=== PATIENT | male | born 1980 | race American Indian/Alaskan Native ===

== ENCOUNTER 2017-04-16 16:03 | Inpatient (IN) | payer MEDICAID, OTHER ==
[2017-04-16 17:18] LABS: BASO % 0.6 % (0.0-2.0); EOS # 0.1 K/uL (0.0-0.7); EOS % 1.6 % (0.0-4.0); HEMATOCRIT 39.7 % (35.0-51.0); LYMPH # 2.5 K/uL (1.0-4.3); LYMPH % 44.2 % (20.0-40.0); MEAN CELL VOLUME 88.8 fL (80.0-94.0); MEAN CORPUSCULAR HEMOGLOBIN 30.4 pg (27.0-31.0); MEAN CORPUSCULAR HGB CONC 34.3 g/dL (33.0-37.0); MEAN PLATELET VOLUME 9.5 fL (7.2-11.7); MONO # 0.6 K/uL (0.0-0.8); MONO % 9.8 % (0.0-10.0); NRBC % 0.1 % (0.0-2.0); RED CELL DISTRIBUTION WIDTH 13.6 % (11.5-14.5); WHITE BLOOD COUNT 5.8 K/uL (4.8-10.8)
[2017-04-16 17:29] LABS: ALB/GLOB RATIO 1.7 (1.0-2.1); ALCOHOL SERUM 189 mg/dl (0-10); ALKALINE PHOSPHATASE 47 U/L (38-126); ALT/SGPT 56 U/L (21-72); AST/SGOT 39 U/L (17-59); BILIRUBIN,TOTAL 0.5 mg/dL (0.2-1.3); BLOOD UREA NITROGEN 13 mg/dL (9-20); CALCIUM 8.4 mg/dl (8.6-10.4); CARBON DIOXIDE 27 mmol/L (22-30); CHLORIDE 99 mmol/L (98-107); GFR AFRICAN-AMERICAN > 60; GLUCOSE,RANDOM 122 mg/dL (75-110); POTASSIUM 3.9 mmol/L (3.6-5.2); SODIUM 137 mmol/L (132-148); TOTAL PROTEIN 6.9 g/dL (6.3-8.3)
[2017-04-16 17:42] LABS: RBC URINE < 1 /hpf (0-3); URINE BILIRUBIN NEGATIVE (NEGATIVE); URINE BLOOD NEGATIVE (NEGATIVE); URINE COLOR Yellow (YELLOW); URINE GLUCOSE (UA) NORMAL (Normal); URINE KETONE NEGATIVE (NEGATIVE); URINE LEUKOCYTE ESTERASE NEG Leu/uL (Negative); URINE PROTEIN NEGATIVE (NEGATIVE); URINE UROBILINOGEN NORMAL mg/dL (0.2-1.0); WBC URINE 3 /hpf (0-5)
--- NOTE | 2017-04-16 19:30 | C.PDOC ---
History Of Present Illness Pt is here requesting detox from alcohol. Time Seen by Provider: 04/16/17 16:47 Chief Complaint (Nursing): Substance Abuse History Per: Patient Onset/Duration Of Symptoms: Days Current Symptoms Are (Timing): Still Present Suicide/Self Injury Attempted (Context): None Modifying Factor(s): Alcohol Severity: Moderate Associated Symptoms: denies: Suicidal Thoughts, Suicidal Plan Additional History Per: Prior Records Past Medical History Reviewed: Historical Data, Nursing Documentation, Vital Signs Vital Signs: Last Vital Signs Temp 98.3 F 04/16/17 19:30 Pulse 95 H 04/16/17 19:30 Resp 18 04/16/17 19:30 BP 137/88 04/16/17 19:30 Pulse Ox 93 L 04/16/17 19:31 - Medical History PMH: HTN Other PMH: Alcohol abuse Family History: States: Unknown Family Hx - Social History Hx Alcohol Use: Yes Hx Substance Use: No - Immunization History Hx Tetanus Toxoid Vaccination: No Hx Influenza Vaccination: Yes Hx Pneumococcal Vaccination: No Review Of Systems Except As Marked, All Systems Reviewed And Found Negative. Constitutional: Negative for: Fever Cardiovascular: Negative for: Chest Pain Respiratory: Negative for: Shortness of Breath Gastrointestinal: Negative for: Vomiting, Abdominal Pain Musculoskeletal: Negative for: Neck Pain Skin: Negative for: Rash Neurological: Negative for: Weakness, Numbness, Seizures Physical Exam - Physical Exam Appears: Non-toxic, No Acute Distress Skin: Normal Color, Warm, Dry, No Rash Head: Atraumatic, Normacephalic Eye(s): bilateral: Normal Inspection, PERRL, EOMI Neck: Normal ROM, Supple Cardiovascular: Rhythm Regular Respiratory: Normal Breath Sounds, No Accessory Muscle Use Gastrointestinal/Abdominal: Soft, No Tenderness Back: No CVA Tenderness Extremity: Normal ROM Neurological/Psych: Oriented x3, Normal Motor, Normal Sensation ED Course And Treatment - Laboratory Results Result Diagrams: 04/16/17 17:13 04/16/17 17:13 Lab Interpretation: No Acute Changes O2 Sat by Pulse Oximetry: 95 Pulse Ox Interpretation: Normal Progress Note: Pt is medically stable for detox admission. Disposition Counseled Patient/Family Regarding: Studies Performed, Diagnosis - Disposition Disposition: HOSPITALIZED Disposition Time: 19:46 Condition: STABLE Forms: [facility] (Maltese) - Clinical Impression Clinical Impression: Alcohol dependence Decision To Admit - Pt Status Changed To: Hospital Disposition Of: Inpatient - Admit Certification Admit to Inpatient:: After my assessment, the patient will require hospitalization for at least two midnights. This is because of the severity of symptoms shown, intensity of services needed, and/or the medical risk in this patient being treated as an outpatient. - InPatient: Physician Admission Certification: I certify that this patient requires 2 or more midnights of care for the following reason:: Detox. - . Bed Request Type: Detox Admitting Physician: Kellen Bernardo Patient Diagnosis: Alcohol dependence
--- NOTE | 2017-04-16 19:57 | PCM.BM ---
<Alice Velasco - Last Filed: 04/16/17 19:56> Treatment Plan Problems - Problems identified on initial assessmt potiential for autonomic instability related to alcohol withdrawal Date Initiated: 04/16/17 Time Initiated: 19:56 Assessment reference: NA Status: Active Treatment assets and liabiliti Patient Assests: ADL independent, physically healthy Patient Liabilities: substance abuse, medical problems - Milieu Protocol Maintain good personal hygiene: daily Encourage regular showers, daily Remind patient to perform daily oral care, daily Assist patient to perform ADL's Maintain personal safety: every shift Educate patient to report safety concerns to staff, every shift Monitor environment for contraband/sharps Medication safety: Monitor for expected outcome, potential side effects: every shift, Assess barriers to learning: every shift, Assess readiness for medication education: every shift <Kellen Bernardo - Last Filed: 04/17/17 14:36> - Diagnosis (1) Alcohol dependence Status: Acute Interventions: 04/17/17 14:36 * Assess 7x/week regarding severity of withdrawal * Educate regarding risks, benefits, side effects and alternatives of medications * Use Motivational Interviewing for abstinence * Use CBT for relapse prevention * Medication management for withdrawal symptoms * Encourage medication assisted treatment *
[2017-04-17] MEDS: Multiple Vitamins Tab PO SCH (09:43)
[2017-04-17] MEDS: Pantoprazole 40 mg EC Tab PO SCH (09:44)
--- NOTE | 2017-04-17 14:22 | PCM.PSYCH ---
Initial Psychiatric Evaluation - Initial Psychiatric Evaluation Type of Admission: Voluntary Legal Status: Capacity Chief Complaint (in patient's own words): "Alcohol" History of Present Illness and Precipitating Events: The patient is seen, chart reviewed and case discussed. 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 He is here for alcohol detox; admits to drinking about 2 L of wine/liquor and some beer. He has been drinking for 20 years and already has withdrawal symptoms. He had detox 1 time only but never been to any rehabilitation. He doesn't go to anymore and he has not used any anti-craving medications. He used marijuana in his 20s but denies all other drugs. Denies psychiatric problems as well. 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 Currently his liver and pancreas are stable. Current Medications: Active Medications Generic Name Dose Route Start Last Admin Trade Name Chiragq PRN Reason Stop Dose Admin Amlodipine Besylate 5 mg 04/17/17 10:00 04/17/17 09:45 Norvasc PO 5 mg DAILY VEENA Administration Chlordiazepoxide 25 mg 04/17/17 00:00 04/17/17 12:10 Librium PO 04/20/17 23:59 25 mg Q6 VEENA Administration Taper Chlordiazepoxide 25 mg 04/16/17 21:31 Librium PO Q4H PRN Alcohol Withdrawal Clonidine HCl 0.1 mg 04/16/17 21:31 04/17/17 08:38 Catapres PO 0.1 mg Q4H PRN Administration Symptoms of alcohol withdrawl Folic Acid 1 mg 04/17/17 10:00 04/17/17 09:43 Folic Acid PO 1 mg DAILY VEENA Administration Gabapentin 300 mg 04/17/17 10:00 04/17/17 09:44 Neurontin PO 300 mg BID VEENA Administration Hydroxyzine HCl 50 mg 04/16/17 21:32 Atarax PO Q6H PRN Anxiety Ibuprofen 600 mg 04/16/17 21:32 Motrin Tab PO Q6H PRN Pain, moderate (4-7) Losartan Potassium 100 mg 04/17/17 10:00 04/17/17 09:44 Cozaar PO 100 mg DAILY VEENA Administration Metoprolol Tartrate 25 mg 04/17/17 10:00 04/17/17 09:44 Lopressor PO 25 mg BID VEENA Administration Multivitamins 1 tab 04/17/17 10:00 04/17/17 09:43 Hexavitamin PO 1 tab DAILY VEENA Administration Ondansetron HCl 4 mg 04/16/17 20:34 04/17/17 06:45 Zofran Tab PO 4 mg Q6 PRN Administration Nausea/Vomiting Pantoprazole Sodium 40 mg 04/17/17 10:00 04/17/17 09:44 Protonix Ec Tab PO 40 mg DAILY VEENA Administration Thiamine HCl 100 mg 04/17/17 10:00 04/17/17 09:43 Vitamin B1 Tab PO 100 mg DAILY VEENA Administration Trazodone HCl 100 mg 04/16/17 21:34 Desyrel PO HS PRN Insomnia Past Psychiatric History - Past Psychiatric History Previous Treatment History: None Pertinent Medical Hx (Current Medical&Sleep Prob, Allergies): Allergies Allergy/AdvReac Type Severity Reaction Status Date / Time No Known Allergies Allergy Verified 04/16/17 16:17 Losartan [Cozaar] 100 mg PO DAILY 04/16/17 Metoprolol Tartrate [Lopressor] 1 tab PO BID 04/16/17 Pantoprazole Sodium [Protonix] 20 mg PO DAILY 04/16/17 amLODIPine [Norvasc] 10 mg PO DAILY 04/16/17 Review of Systems - Neurological Neurological: UNREMARKABLE - Psychiatric Psychiatric: Abnormal Sleep Pattern, Anxiety. absent: Depression, Hallucinations, Homicidal Ideation, Paranoia, Suicidal Ideation Mental Status Examination - Personal Presentation Personal Presentation: Looks older than stated age - Affect Affect: Constricted - Motor Activity Motor Activity: Calm - Reliability in Providing Information Reliability in Providing Information: Good - Speech Speech: Organized - Mood Mood: Anxious - Formal Thought Process Formal Thought Process: No Impairment - Cognitive Functions Orientation: Person, Place, Situation, Time Sensorium: Alert Attention/Concentration: Attentive Estimate of Intelligence: Average Judgement: Intact, as evidence by: Insight regarding need for hospitalization Memory: Recent intact, as evidence by: Ability to recall events of the day, Remote intact, as evidenced by: Abilit to recall sig. life events - Risk Risk: Diminished functioning - Strength & Assets Inventory Strength & Assets Inventory: Cooperative DSM 5 DX - DSM 5 DSM 5 Diagnosis: Alcohol withdrawal Alcohol use d/o - severe HTN - Recommended/Plan of Treatment Treatment Recommendations and Plan of Treatment: Librium detox Gabapentin for augmentation As needed medications Attend groups and activities Supportive therapy and psychoeducation [place] for abstinence CBT for relapse prevention Encourage MAT Refer to rehab or IOP, and self-help groups Smoking cessation with [place] Nicotine patch 34 min Projected ELOS: 5-6 days Prognosis: Good w treatment - Smoking Cessation Smoking Cessation Initiated: Yes
[2017-04-18] MEDS: Multiple Vitamins Tab PO SCH (10:37)
[2017-04-18] MEDS: Pantoprazole 40 mg EC Tab PO SCH (10:37)
--- NOTE | 2017-04-18 14:16 | PCM.PYCHPN ---
Psychiatric Progress Note - Psychiatric Progress Note Patient seen today, length of contact: 16 min Patient Chief Complaint: "OK" Problems Identified/Issues Discussed: The pt is seen, chart reviewed, case discussed with staff. The pt is compliant with medications and reports no side-effects. Symptoms are improving but needs more time to stabilize. After care discussed, support and psychoeducation given. Medication Change: Yes (detox changes daily) Medical Record Reviewed: Yes Mental Status Examination - Cognitive Function Orientation: Person, Place, Situation, Time Memory: Intact Attention: WNL Concentration: WNL Association: WNL Fund of Knowledge: WNL - Mood Mood: Anxious - Affect Affect: Constricted - Speech Speech: Appropriate - Formal Thought Process Formal Thought Process: No Impairment - Suicidal Ideation Suicidal Ideation: No - Homicidal Ideation Homicidal Ideation: No Goal/Treatment Plan - Goal/Treatment Plan Need for Continued Stay: Discharge may exacerbated symptoms, Severe functional impairment Progress Toward Problem(s) and Goals/Treatment Plan: Librium detox Gabapentin for augmentation As needed medications Attend groups and activities Supportive therapy and psychoeducation [place] for abstinence CBT for relapse prevention Encourage MAT Refer to rehab or IOP, and self-help groups Smoking cessation with [place] Nicotine patch
[2017-04-18 15:46] VITALS: RESP 18
[2017-04-19] MEDS: Multiple Vitamins Tab PO SCH (10:15)
[2017-04-19] MEDS: Pantoprazole 40 mg EC Tab PO SCH (10:15)
--- NOTE | 2017-04-19 13:23 | PCM.PYCHPN ---
Psychiatric Progress Note - Psychiatric Progress Note Patient seen today, length of contact: 16 min Patient Chief Complaint: "Better" Problems Identified/Issues Discussed: The pt is seen, chart reviewed, case discussed with staff. Support given, CBT and SD used briefly No new symptoms reported, improving slowly and needs more time No SEs from medications, risks discussed. After care discussed Medication Change: Yes (detox changes daily) Medical Record Reviewed: Yes Mental Status Examination - Cognitive Function Orientation: Person, Place, Situation, Time Memory: Intact Attention: WNL Concentration: WNL Association: WNL Fund of Knowledge: WNL - Mood Mood: Anxious - Affect Affect: Constricted - Speech Speech: Appropriate - Formal Thought Process Formal Thought Process: No Impairment - Suicidal Ideation Suicidal Ideation: No - Homicidal Ideation Homicidal Ideation: No Goal/Treatment Plan - Goal/Treatment Plan Need for Continued Stay: Discharge may exacerbated symptoms, Severe functional impairment Progress Toward Problem(s) and Goals/Treatment Plan: Librium detox Gabapentin for augmentation As needed medications Attend groups and activities Supportive therapy and psychoeducation [place] for abstinence CBT for relapse prevention Encourage MAT Refer to rehab or IOP, and self-help groups Smoking cessation with [place] Nicotine patch Estimated Date of D/C: 04/20/17
[2017-04-19] MEDS ORDERED: Benzocaine 7.5% 9.4 G TUBE MM PRN (20:21)
[2017-04-20] MEDS: Multiple Vitamins Tab PO SCH (09:17)
[2017-04-20] MEDS: Pantoprazole 40 mg EC Tab PO SCH (09:18)
--- NOTE | 2017-04-20 09:31 | PCM.PYCHDC ---
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 He is here for alcohol detox; admits to drinking about 2 L of wine/liquor and some beer. He has been drinking for 20 years and already has withdrawal symptoms. He had detox 1 time only but never been to any rehabilitation. He doesn't go to anymore and he has not used any anti-craving medications. He used marijuana in his 20s but denies all other drugs. Denies psychiatric problems as well. 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 Currently his liver and pancreas are stable. Consultations:: List each consultation separately and include: 1. Reason for request. 2. Findings. 3. Follow-up Consultations: NONE Summary of Hospital Course include:: 1. Description of specific treatment plan utilized for patients during their course of treatmen. 2. Summarize the time- course for resolution of acute symptoms and/or regressed behaviors. 3. Describe issues identified and worked on during hospitalization. 4. Describe medication utilized. 5. Describe medical problems identified and treated. 6. Reassessment of suicide risk Summary of Hospital Course: The pt was admitted and started on treatment with psychotherapy, support, psychoeducation and medications. Pt was compliant with meds and denied side effects. He reported improvement in his alcohol withdrawal symptoms. At the time of discharge he was not suicidal or homicidal ideation, intent or plan. IN and CBT used. The pt attended groups and activities, as well as milieu therapy. All the risks and benefits of medications are discussed and the patient understood and agreed. The pt improved with the treatments provided. After care discussed with the patient. Recommend to be compliant with the treatment plan. Time spend 18 minutes - Diagnosis (1) Withdrawal symptoms, alcohol Status: Resolved (2) Alcohol dependence Status: Resolved - Final Diagnosis (DSM 5) Condition upon Discharge: STABLE DSM 5: Alcohol use disorder. severe, dependence, withdrawal symptoms. Disposition: HOME/ ROUTINE Follow-up Treatment Plan: PLEASE SEE AFTER CARE PLAN Prescriptions/Medication Reconciliation: Gabapentin [Neurontin] 300 mg PO BID #60 cap hydrOXYzine HCl [Atarax] 50 mg PO BID PRN #60 tab PRN Reason: Anxiety traZODone [Desyrel] 100 mg PO HS PRN #30 tab PRN Reason: Insomnia - Smoking Cessation Smoking Cessation Medication prescribed: Yes - Antipsychotic Medications Pt discharged on 2 or more routine antipsychotic medications: No
[2017-04-20 10:04] VITALS: BP 128/86; PULSE 90; TEMP 98.4; O2SAT 96
== END 2017-04-20 09:30 | disposition home or self-care (01) | DRG 751 ==
LOC: C.ER 16:03 → C.7D 19:46
PROVIDERS: ADMIT Psychiatry & Neurology Psychiatry; ATTEND Psychiatry & Neurology Psychiatry
DX: F10.239 Alcohol dependence with withdrawal, unspecified (principal); E66.9 Obesity, unspecified; I10 Essential (primary) hypertension; Z79.899 Other long term (current) drug therapy; G47.00 Insomnia, unspecified; Z68.39 Body mass index [BMI] 39.0-39.9, adult; Y90.6 Blood alcohol level of 120-199 mg/100 ml

== ENCOUNTER 2017-09-27 13:27 | Inpatient (IN) | payer MEDICAID, OTHER ==
--- NOTE | 2017-09-27 14:23 | C.PDOC ---
History Of Present Illness 37-year-old male, presents to the emergency department for detox from alcohol. Patients last drink was at 10:00 this morning. Denies any nausea/vomiting, SI/ HI. Time Seen by Provider: 09/27/17 13:38 Chief Complaint (Nursing): Medical Clearance History Per: Patient History/Exam Limitations: no limitations Current Symptoms Are (Timing): Still Present Past Medical History Reviewed: Historical Data, Nursing Documentation, Vital Signs Vital Signs: Last Vital Signs Temp 98.7 F 09/27/17 17:50 Pulse 88 09/27/17 17:50 Resp 18 09/27/17 17:50 BP 131/84 09/27/17 17:50 Pulse Ox 96 09/27/17 17:50 - Medical History PMH: HTN, Pancreatitis (2 months ago) Family History: States: No Known Family Hx - Social History Hx Alcohol Use: Yes Hx Substance Use: No - Immunization History Hx Tetanus Toxoid Vaccination: No Hx Influenza Vaccination: Yes Hx Pneumococcal Vaccination: No Review Of Systems Constitutional: Negative for: Fever, Chills Cardiovascular: Negative for: Chest Pain Respiratory: Negative for: Shortness of Breath Gastrointestinal: Negative for: Nausea, Vomiting Neurological: Negative for: Weakness, Numbness Physical Exam - Physical Exam Appears: Non-toxic, No Acute Distress Skin: Normal Color, Warm, Dry, No Rash Head: Atraumatic, Normacephalic Eye(s): bilateral: Normal Inspection Nose: Normal Oral Mucosa: Moist Lips: Normal Appearing Neck: Normal ROM Chest: Symmetrical Cardiovascular: Rhythm Regular, No Murmur Respiratory: Normal Breath Sounds, No Accessory Muscle Use Gastrointestinal/Abdominal: Soft, No Tenderness Extremity: Normal ROM, No Deformity, No Swelling Neurological/Psych: Oriented x3, Normal Speech ED Course And Treatment - Laboratory Results Result Diagrams: 09/27/17 15:21 09/27/17 15:21 O2 Sat by Pulse Oximetry: 100 (RA) Pulse Ox Interpretation: Normal Progress Note: Patient is medically cleared and ready to be admitted to detox. Disposition - Disposition Disposition: HOSPITALIZED Disposition Time: 16:14 Condition: STABLE - Clinical Impression Clinical Impression: Alcohol dependence - Scribe Statement The provider has reviewed the documentation as recorded by the Scribe (Maegan Arredondo) All medical record entries made by the Scribe were at my direction and personally dictated by me. I have reviewed the chart and agree that the record accurately reflects my personal performance of the history, physical exam, medical decision making, and the department course for this patient. I have also personally directed, reviewed, and agree with the discharge instructions and disposition. Decision To Admit - Pt Status Changed To: Hospital Disposition Of: Inpatient - Admit Certification Admit to Inpatient:: After my assessment, the patient will require hospitalization for at least two midnights. This is because of the severity of symptoms shown, intensity of services needed, and/or the medical risk in this patient being treated as an outpatient. - InPatient: Physician Admission Certification: I certify that this patient requires 2 or more midnights of care for the following reason:: Needs more than days for detox - . Bed Request Type: Detox Patient Diagnosis: Alcohol dependence
[2017-09-27 15:32] LABS: BASO % 0.5 % (0.0-2.0); EOS # 0.1 K/uL (0.0-0.7); EOS % 1.2 % (0.0-4.0); HEMOGLOBIN 14.6 g/dL (12.0-18.0); LYMPH % 28.6 % (20.0-40.0); MEAN CELL VOLUME 87.2 fL (80.0-94.0); MEAN CORPUSCULAR HEMOGLOBIN 31.3 pg (27.0-31.0); MEAN CORPUSCULAR HGB CONC 35.9 g/dL (33.0-37.0); MEAN PLATELET VOLUME 9.5 fL (7.2-11.7); MONO # 0.6 K/uL (0.0-0.8); MONO % 7.9 % (0.0-10.0); NEUT # 4.4 K/uL (1.8-7.0); NEUT % 61.8 % (50.0-75.0); NRBC % 0.2 % (0.0-2.0); RBC 4.67 Mil/uL (4.40-5.90); RED CELL DISTRIBUTION WIDTH 12.9 % (11.5-14.5); WHITE BLOOD COUNT 7.1 K/uL (4.8-10.8)
[2017-09-27 15:39] LABS: SQUAMOUS EPITHIAL < 1 /hpf (0-5); URINE BILIRUBIN NEGATIVE (NEGATIVE); URINE BLOOD NEGATIVE (NEGATIVE); URINE CLARITY Clear (Clear); URINE COLOR Straw (YELLOW); URINE GLUCOSE (UA) NORMAL (Normal); URINE LEUKOCYTE ESTERASE NEG Leu/uL (Negative); URINE PROTEIN NEGATIVE (NEGATIVE); URINE UROBILINOGEN NORMAL mg/dL (0.2-1.0)
[2017-09-27 15:40] LABS: ALB/GLOB RATIO 1.3 (1.0-2.1); ALT/SGPT 124 U/L (21-72); AST/SGOT 111 U/L (17-59); BLOOD UREA NITROGEN 13 mg/dL (9-20); CALCIUM 8.7 mg/dl (8.6-10.4); GFR AFRICAN-AMERICAN > 60; GFR NON-AFRICAN AMERICAN > 60
[2017-09-27 15:51] LABS: BARBITURATES, UR NEGATIVE (NEGATIVE); BENZODIAZEPINES, UR NEGATIVE (NEGATIVE); OPIATES, UR NEGATIVE (NEGATIVE); PHENCYCLIDINE, UR NEGATIVE (NEGATIVE)
--- NOTE | 2017-09-27 18:05 | PCM.BM ---
<Chris Velez - Last Filed: 09/27/17 18:03> Treatment Plan Problems - Problems identified on initial assessmt Alcohol Detox Date Initiated: 09/27/17 Time Initiated: 17:45 Assessment reference: NA Status: Active Treatment assets and liabiliti Patient Assests: ADL independent, physically healthy Patient Liabilities: substance abuse (ETOH), medical problems (HTN, ) - Milieu Protocol Maintain good personal hygiene: daily Encourage regular showers, daily Remind patient to perform daily oral care, every shift Assist patient to perform ADL's Conduct patient checks and document Observation sheet: Q15 minutes Maintain personal safety: every shift Educate patient to report safety concerns to staff, every shift Monitor environment for contraband/sharps Medication safety: Monitor for expected outcome, potential side effects: every shift, Assess barriers to learning: every shift, Assess readiness for medication education: every shift <Fauzia Centeno - Last Filed: 09/30/17 11:24> Family Contact Family involvement: Famliy/SO not involved - Goals for Treatment Patient goals for treatment: Complete detox and transition to [facility] in [place]. Discharge/Continuing Care - Education Needs Education Needs: Patient Medication, Patient Diagnosis/Disease Process, Patient Coping Skills, Patient Anger Management skills, Patient Placement options, Patient Community resources - Discharge Discharge Criteria: No longer exhibiting s/s of withdrawal, Reduction of target symptoms Discharge to:: Home, With Family - Treatment Team Participation Patient/Family/SO Statement: 09/30/17 11:25 "I wanna go to [facility] in [place]. I'm not interested in rehab right now." Discussed with Family/SO: No Was Patient/Family/SO present at Treatment Team Meeting: Yes <Kellen Bernardo - Last Filed: 09/30/17 12:47> - Diagnosis (1) Alcohol dependence Status: Acute Interventions: 09/30/17 12:47 * Assess 7x/week regarding severity of withdrawal * Educate regarding risks, benefits, side effects and alternatives of medications * Use Motivational Interviewing for abstinence * Use CBT for relapse prevention * Medication management for withdrawal symptoms * Encourage medication assisted treatment *
[2017-09-27] MEDS ORDERED: Aluminum Hydroxide/Magnesium Hydroxide Susp (30 mL) PO PRN (22:31)
[2017-09-28] MEDS: Multiple Vitamins Tab PO SCH (09:55)
--- NOTE | 2017-09-28 10:10 | PCM.PSYCH ---
Initial Psychiatric Evaluation - Initial Psychiatric Evaluation Type of Admission: Voluntary Legal Status: Capacity Chief Complaint (in patient's own words): I came to get help for detox History of Present Illness and Precipitating Events: Patient is a 50 y/o male, came to the ED to get help in alcohol detox. Pt stated his substance abuse began at the age of 26 and he cannot identify any triggers. Pt reports he has been to detox at [facility] last year and [facility] 5 years ago and no aftercare due to IOP being, busy as pt reports. Pt stated his PCP dx him with anxiety a year ago and barely takes Xanax for his anxiety because he drinks. Pt stated he has been sober for two years within a 9 year duration. Pt states, I drink about 240z of beer and wine and about 6-8 shots on a daily basis. Pt denies any other substances. Pt was arrested at the age of 19 for stolen property and denies incarceration. Pt is unemployed; he used to work at [employer] last year but reported they let him go after he came back from detox. Pt reports high blood pressure and pre-diabetes, he takes 100mg of Metoprolol, 100mg of Losartan, 10mg of Norvasc daily and 1mg of Xanax as needed. Pt reported his sister is a great support system. Pt denies any trauma and hx of violence. Pt reports cold flashes and the shakes when he is withdrawing and his father OD on heroin and his mother was an addict. Pts mood was calm, behavior was attentive and speech was normal. Pt denies S/I, H/I and A/V/T hallucinations. PMH: HTN Current Medications: Active Medications Generic Name Dose Route Start Last Admin Trade Name Freq PRN Reason Stop Dose Admin Al Hydrox/Mg Hydrox/Simethicone 30 ml 09/27/17 22:31 Maalox 30 Ml PO TID PRN Indigestion / Heartburn Clonidine HCl 0.1 mg 09/27/17 22:31 Catapres PO Q8 PRN COWS Score More or Equal to 5 Folic Acid 1 mg 09/28/17 10:00 09/28/17 09:56 Folic Acid PO 1 mg DAILY VEENA Administration Lorazepam 2 mg 09/27/17 22:45 09/28/17 09:55 Ativan PO 10/02/17 22:44 2 mg Q4H VEENA Administration Taper Lorazepam 1 mg 09/27/17 22:32 Ativan PO Q4H PRN Symptoms of alcohol withdrawl Multivitamins 1 tab 09/28/17 10:00 09/28/17 09:55 Hexavitamin PO 1 tab DAILY VEENA Administration Ondansetron HCl 4 mg 09/27/17 17:39 09/27/17 18:42 Zofran Tab PO 4 mg Q6H PRN Administration Nausea/Vomiting Pseudoephedrine HCl 60 mg 09/27/17 22:31 Sudafed Tab PO QID PRN Nasal/Sinus Congestion Thiamine HCl 100 mg 09/28/17 10:00 09/28/17 09:56 Vitamin B1 Tab PO 100 mg DAILY VEENA Administration Trazodone HCl 50 mg 09/27/17 22:32 09/27/17 23:23 Desyrel PO 50 mg HS PRN Administration Insomnia Past Psychiatric History - Past Psychiatric History Previous Treatment History: None Pertinent Medical Hx (Current Medical&Sleep Prob, Allergies): Allergies Allergy/AdvReac Type Severity Reaction Status Date / Time No Known Allergies Allergy Verified 09/27/17 13:35 Metoprolol Tartrate [Lopressor] 1 tab PO BID 04/16/17 amLODIPine [Norvasc] 10 mg PO DAILY 04/16/17 Losartan [Cozaar] 100 mg PO DAILY tab 04/20/17 Metoprolol Tartrate [Lopressor] 25 mg PO BID tab 04/20/17 amLODIPine [Norvasc] 5 mg PO DAILY tab 04/20/17 Review of Systems - Review of Systems All systems: reviewed and no additional remarkable complaints except - Psychiatric Psychiatric: Anxiety, Irritability. absent: Suicidal Ideation Mental Status Examination - Personal Presentation Personal Presentation: Looks stated age - Affect Affect: Constricted - Motor Activity Motor Activity: Calm - Reliability in Providing Information Reliability in Providing Information: Fair - Speech Speech: Organized - Mood Mood: Anxious - Formal Thought Process Formal Thought Process: No Impairment - Obsessions/Compulsions Obsessions: No Compulsions: No - Cognitive Functions Orientation: Person, Place, Situation, Time Sensorium: Alert Attention/Concentration: Attentive Abstract Thinking: [place] Estimate of Intelligence: Below average Judgement: Imparied, as evidence by: Poor judgement, Intact, as evidence by: Insight regarding need for hospitalization - Risk Risk: Withdrawal, Diminished functioning - Strength & Assets Inventory Strength & Assets Inventory: Family support DSM 5 DX - DSM 5 DSM 5 Diagnosis: Alcohol use disorder severe Alcohol withdrawal uncomplicated Depressive disorder NOS - Recommended/Plan of Treatment Treatment Recommendations and Plan of Treatment: Alcohol use disorder severe CBT Psychoeducation Supportive therapy, individual therapy Use [place] for abstinence Alcohol withdrawal uncomplicated CBT Psychoeducation Supportive therapy, individual therapy Ativan when necessary Start Ativan taper Start folic acid/thiamine/multivitamin Depressive disorder NOS CBT Psychoeducation Supportive therapy, individual therapy Trazodone 50 mg by mouth daily at bedtime HTN Continue prescribed medications
[2017-09-28] MEDS: Pantoprazole 40 mg EC Tab PO SCH (14:23)
[2017-09-29] MEDS: Pantoprazole 40 mg EC Tab PO SCH ×2 (05:57→10:11)
[2017-09-29] MEDS: Multiple Vitamins Tab PO SCH (10:04)
--- NOTE | 2017-09-29 12:26 | PCM.PYCHPN ---
Psychiatric Progress Note - Psychiatric Progress Note Patient seen today, length of contact: 15 min Patient Chief Complaint: I came to get help for detox Problems Identified/Issues Discussed: Patient seen and evaluated, chart reviewed and discussed with the nurse. Patient still reports withdrawal symptoms nausea, headaches, shakes and abdominal cramps. He reports some improvement in his mood and denies any feelings of hopelessness and helplessness. Patient denies any auditory or visual hallucinations, or any psychotic symptoms. He reports improvement in his sleep and appetite. He is tolerating the withdrawal medications and denies any side effects. Supportive therapy and psychoeducation were given. Medication Change: Yes Medical Record Reviewed: Yes Mental Status Examination - Cognitive Function Orientation: Person, Place, Situation, Time Memory: Intact Attention: WNL Concentration: Poor Association: WNL Fund of Knowledge: Poor - Mood Mood: Anxious - Affect Affect: Constricted - Speech Speech: Soft - Formal Thought Process Formal Thought Process: No Impairment - Suicidal Ideation Suicidal Ideation: No - Homicidal Ideation Homicidal Ideation: No Goal/Treatment Plan - Goal/Treatment Plan Need for Continued Stay: Severe depression anxiety, Severe functional impairment Progress Toward Problem(s) and Goals/Treatment Plan: Alcohol use disorder severe CBT Psychoeducation Supportive therapy, individual therapy Use [place] for abstinence Alcohol withdrawal uncomplicated CBT Psychoeducation Supportive therapy, individual therapy Ativan when necessary Start Ativan taper Start folic acid/thiamine/multivitamin Depressive disorder NOS CBT Psychoeducation Supportive therapy, individual therapy Trazodone 50 mg by mouth daily at bedtime HTN Continue prescribed medications
[2017-09-30] MEDS: Multiple Vitamins Tab PO SCH (09:48)
[2017-09-30] MEDS: Pantoprazole 40 mg EC Tab PO SCH (09:51)
--- NOTE | 2017-09-30 12:51 | PCM.PYCHPN ---
Psychiatric Progress Note - Psychiatric Progress Note Patient seen today, length of contact: 15 min Patient Chief Complaint: "So so" Problems Identified/Issues Discussed: The pt is seen, chart reviewed, case discussed with staff. Support and psychoeducation given, CBT and MT used briefly No new symptoms reported, improving slowly and needs more time No SEs from medications, risks discussed. After care discussed Medication Change: Yes (detox changes daily) Medical Record Reviewed: Yes Mental Status Examination - Cognitive Function Orientation: Person, Place, Situation, Time Memory: Intact Attention: WNL Concentration: Poor Association: WNL Fund of Knowledge: Poor - Mood Mood: Anxious - Affect Affect: Constricted - Speech Speech: Soft - Formal Thought Process Formal Thought Process: No Impairment - Suicidal Ideation Suicidal Ideation: No - Homicidal Ideation Homicidal Ideation: No Goal/Treatment Plan - Goal/Treatment Plan Need for Continued Stay: Discharge may exacerbated symptoms, Severe functional impairment Progress Toward Problem(s) and Goals/Treatment Plan: Taper with ativan Add topamax for cravings Gabapentin for augmentation if needed As needed medications All risks, benefits and alternatives of the meds discussed, and the pt agreed and understood. Attend groups and activities Supportive therapy and psychoeducation MT for abstinence CBT for relapse prevention Encourage MAT Refer to rehab or IOP, and self-help groups Smoking cessation with MT Nicotine patch if needed 34 min - Smoking Cessation Smoking Cessation Initiated: Yes
[2017-10-01] MEDS: Pantoprazole 40 mg EC Tab PO SCH (09:34)
[2017-10-01] MEDS: Multiple Vitamins Tab PO SCH (09:34)
--- NOTE | 2017-10-01 14:21 | PCM.PYCHPN ---
Psychiatric Progress Note - Psychiatric Progress Note Patient seen today, length of contact: 16 min Patient Chief Complaint: "Better" Problems Identified/Issues Discussed: The pt is seen, chart reviewed, case discussed with staff. The pt is compliant with medications and reports no side-effects. Symptoms are improving but needs more time to stabilize. After care discussed, support and psychoeducation given. Topamax started today - risks discussed, he understood Medication Change: Yes (detox changes daily) Medical Record Reviewed: Yes Mental Status Examination - Cognitive Function Orientation: Person, Place, Situation, Time Memory: Intact Attention: WNL Concentration: Poor Association: WNL Fund of Knowledge: Poor - Mood Mood: Anxious - Affect Affect: Constricted - Speech Speech: Soft - Formal Thought Process Formal Thought Process: No Impairment - Suicidal Ideation Suicidal Ideation: No - Homicidal Ideation Homicidal Ideation: No Goal/Treatment Plan - Goal/Treatment Plan Need for Continued Stay: Discharge may exacerbated symptoms, Severe functional impairment Progress Toward Problem(s) and Goals/Treatment Plan: Taper with ativan Add topamax for cravings Gabapentin for augmentation if needed As needed medications All risks, benefits and alternatives of the meds discussed, and the pt agreed and understood. Attend groups and activities Supportive therapy and psychoeducation [place] for abstinence CBT for relapse prevention Encourage MAT Refer to rehab or IOP, and self-help groups Smoking cessation with NE Nicotine patch if needed
--- NOTE | 2017-10-02 08:27 | PCM.PYCHDC ---
Mental Status Examination - Mental Status Examination Orientation: Person, Place, Situation, Time Memory: Intact Mood: Anxious Affect: Constricted Speech: Appropriate Attention: WNL Concentration: WNL Association: WNL Fund of Knowledge: WNL Formal Thought Process: No Impairment Suicidal Ideation: No Current Homicidal Ideation?: No Discharge Summary - Discharge Note Reason for Hospitalization: Alcohol detox Consultations:: List each consultation separately and include: 1. Reason for request. 2. Findings. 3. Follow-up Summary of Hospital Course include:: 1. Description of specific treatment plan utilized for patients during their course of treatmen. 2. Summarize the time- course for resolution of acute symptoms and/or regressed behaviors. 3. Describe issues identified and worked on during hospitalization. 4. Describe medication utilized. 5. Describe medical problems identified and treated. 6. Reassessment of suicide risk Summary of Hospital Course: Hospital course: The pt was admitted and started on treatment with psychotherapy, support, psychoeducation and medications. OR and CBT used. The pt attended groups and activities, as well as milieu therapy. All the risks and benefits of medications are discussed and the patient understood and agreed. The pt improved with the treatments provided. After care discussed with the patient. He will go to [facility] in [place]. - Final Diagnosis (DSM 5) Condition upon Discharge: STABLE DSM 5: Alcohol use disorder severe Alcohol withdrawal uncomplicated Depressive disorder NOS Disposition: HOME/ ROUTINE Follow-up Treatment Plan: Continue below medications after discharge. Follow after care plan as discussed. Use relapse prevention skills Return to ER or call 911 if suicidal, homicidal or symptoms relapse. Stay away from stress, alcohol and drugs. See primary doctor regularly and get labs. Prescriptions/Medication Reconciliation: amLODIPine [Norvasc] 10 mg PO DAILY #30 tab Losartan [Cozaar] 100 mg PO DAILY #30 tab Metoprolol Tartrate [Lopressor] 100 mg PO BID #60 tab Pantoprazole [Protonix EC Tab] 40 mg PO DAILY #30 ect Topiramate [Topamax] 50 mg PO BID #60 tab traZODone [Desyrel] 100 mg PO HS PRN #30 tab PRN Reason: Insomnia
[2017-10-02] MEDS: Pantoprazole 40 mg EC Tab PO SCH (09:18)
[2017-10-02] MEDS: Multiple Vitamins Tab PO SCH (09:19)
[2017-10-02 10:21] VITALS: BP 139/86; PULSE 87; RESP 20; TEMP 97.7; O2SAT 99
== END 2017-10-02 11:54 | disposition home or self-care (01) | DRG 751 ==
LOC: C.ER 13:27 → C.7D 16:11
PROVIDERS: ADMIT Psychiatry & Neurology Psychiatry; ATTEND Psychiatry & Neurology Psychiatry
PROC: HZ2ZZZZ Detoxification Services for Substance Abuse Treatment (ICD-10-PCS; principal; 2017-09-27)
PROC: HZ56ZZZ Individual Psychotherapy for Substance Abuse Treatment, Psychoeducation (ICD-10-PCS; 2017-09-27)
PROC: HZ59ZZZ Individual Psychotherapy for Substance Abuse Treatment, Supportive (ICD-10-PCS; 2017-09-27)
PROC: GZ3ZZZZ Medication Management (ICD-10-PCS; 2017-09-27)
PROC: GZHZZZZ Group Psychotherapy (ICD-10-PCS; 2017-09-27)
PROC: GZ56ZZZ Individual Psychotherapy, Supportive (ICD-10-PCS; 2017-09-27)
PROC: HZ90ZZZ Pharmacotherapy for Substance Abuse Treatment, Nicotine Replacement (ICD-10-PCS; 2017-09-27)
DX: F10.230 Alcohol dependence with withdrawal, uncomplicated (principal); F32.9 Major depressive disorder, single episode, unspecified; F41.9 Anxiety disorder, unspecified; F17.210 Nicotine dependence, cigarettes, uncomplicated; I10 Essential (primary) hypertension; R73.03 Prediabetes

== ENCOUNTER 2017-12-12 16:52 | Inpatient (IN) | payer MEDICAID, OTHER ==
--- NOTE | 2017-12-12 17:34 | C.PDOC ---
History Of Present Illness <Marianne Palacios - Last Filed: 12/12/17 18:44> <Juan C Van - Last Filed: 12/12/17 20:09> PRESCREEN FOR ETOH DETOX. LAST DRINK @ 1400. DENIES OTHER DRUG USE, SI/SA. ASYMPT EXAM NEG (Marianne Palacios) History Per: Patient History/Exam Limitations: no limitations <Marianne Palacios - Last Filed: 12/12/17 18:44> <Juan C Van - Last Filed: 12/12/17 20:09> Time Seen by Provider: 12/12/17 17:33 Chief Complaint (Nursing): Substance Abuse Past Medical History Reviewed: Historical Data, Nursing Documentation, Vital Signs - Medical History PMH: Diabetes (pre diabetes), HTN, Pancreatitis (2 months ago) Denies: Hepatitis, HIV, Seizures, Sexually Transmitted Disease Surgical History: No Surg Hx Family History: States: No Known Family Hx - Social History Hx Alcohol Use: Yes Hx Substance Use: No - Immunization History Hx Tetanus Toxoid Vaccination: Yes Hx Influenza Vaccination: Yes Hx Pneumococcal Vaccination: Yes <Marianne Palacios - Last Filed: 12/12/17 18:44> Vital Signs: Last Vital Signs Temp 98.2 F 12/12/17 17:17 Pulse 107 H 12/12/17 17:17 Resp 20 12/12/17 17:17 BP 129/84 12/12/17 17:17 Pulse Ox 96 12/12/17 18:44 - [facility] DETOXIFICATION SERVICES FOR SUBSTANCE ABUSE TREATMENT (09/27/17) GROUP PSYCHOTHERAPY (09/27/17) INDIV PSYCHOTHERAPY FOR SUBSTANCE ABUSE TREATMENT, SUPPORT (09/27/17) INDIV PSYCHOTHERAPY FOR SUBSTANCE ABUSE, PSYCHOEDUCATION (09/27/17) INDIVIDUAL PSYCHOTHERAPY, SUPPORTIVE (09/27/17) MEDICATION MANAGEMENT (09/27/17) PHARMACOTHERAPY FOR SUBSTANCE ABUSE, NICOTINE REPLACE (09/27/17) Review Of Systems Except As Marked, All Systems Reviewed And Found Negative. Constitutional: Negative for: Fever, Chills <Marianne Palacios - Last Filed: 12/12/17 18:44> Physical Exam - Physical Exam Appears: No Acute Distress Skin: Normal Color, Warm, Dry Head: Atraumatic, Normacephalic Eye(s): bilateral: Normal Inspection Respiratory: Other (NARD) Neurological/Psych: Oriented x3, Normal Speech <Marianne Palacios - Last Filed: 12/12/17 18:44> ED Course And Treatment - Laboratory Results Result Diagrams: 12/12/17 17:51 12/12/17 17:51 O2 Sat by Pulse Oximetry: 96 (RA) Pulse Ox Interpretation: Normal Reevaluation Time: 18:41 Reassessment Condition: Unchanged (MED CLEAR FOR DETOX. CRISIS NOTIFIED) <Marianne Palacios - Last Filed: 12/12/17 18:44> - Laboratory Results Result Diagrams: 12/12/17 17:51 12/12/17 17:51 <Juan C Van - Last Filed: 12/12/17 20:09> Medical Decision Making <Marianne Palacios - Last Filed: 12/12/17 18:44> <Juan C Van - Last Filed: 12/12/17 20:09> Medical Decision Making: Plan: --Labs --UA --Crisis Evaluation (Marianne Palacios) Disposition Counseled Patient/Family Regarding: Studies Performed, Diagnosis - Disposition Disposition Time: 18:45 <Marianne Palacios - Last Filed: 12/12/17 18:44> Discussed With : Kellen Bernardo Doctor Will See Patient In The: Hospital Counseled Patient/Family Regarding: Diagnosis - Disposition Disposition Time: 20:09 <Juan C Van - Last Filed: 12/12/17 20:09> - Disposition Disposition: HOSPITALIZED Condition: STABLE Forms: [facility] (Indonesian) - Clinical Impression Clinical Impression: Alcohol dependence, Alcohol use disorder, severe, dependence - Scribe Statement The provider has reviewed the documentation as recorded by the Scribe <Marianne Palacios - Last Filed: 12/12/17 18:44> <Juan C Van - Last Filed: 12/12/17 20:09> - Scribe Statement Oskar Winters (PhilipMarianne) Provider Attestation: All medical record entries made by the Scribe were at my direction and personally dictated by me. I have reviewed the chart and agree that the record accurately reflects my personal performance of the history, physical exam, medical decision making, and the department course for this patient. I have also personally directed, reviewed, and agree with the discharge instructions and disposition. (Marianne Palacios) Physician Patient Turnover Patient Signed Over To: Juan C Van Handoff Comments: FU CRISIS, DISPO <Marianne Palacios - Last Filed: 12/12/17 18:44>
[2017-12-12 17:54] LABS: BASO % 0.4 % (0.0-2.0); EOS # 0.1 K/uL (0.0-0.7); EOS % 1.9 % (0.0-4.0); HEMOGLOBIN 14.1 g/dL (12.0-18.0); LYMPH # 2.5 K/uL (1.0-4.3); LYMPH % 34.7 % (20.0-40.0); MEAN CELL VOLUME 86.7 fL (80.0-94.0); MEAN CORPUSCULAR HEMOGLOBIN 29.3 pg (27.0-31.0); MEAN CORPUSCULAR HGB CONC 33.8 g/dL (33.0-37.0); MEAN PLATELET VOLUME 9.1 fL (7.2-11.7); MONO # 0.6 K/uL (0.0-0.8); NEUT # 3.9 K/uL (1.8-7.0); NRBC % 0.2 % (0.0-2.0); RBC 4.82 Mil/uL (4.40-5.90); RED CELL DISTRIBUTION WIDTH 13.1 % (11.5-14.5); WHITE BLOOD COUNT 7.2 K/uL (4.8-10.8)
[2017-12-12 18:07] LABS: ALB/GLOB RATIO 1.7 (1.0-2.1); ALBUMIN 4.6 g/dL (3.5-5.0); ALT/SGPT 138 U/L (21-72); AST/SGOT 55 U/L (17-59); BLOOD UREA NITROGEN 5 mg/dL (9-20); CALCIUM 9.2 mg/dl (8.6-10.4); GFR AFRICAN-AMERICAN > 60; GFR NON-AFRICAN AMERICAN > 60
[2017-12-12 18:13] LABS: SQUAMOUS EPITHIAL < 1 /hpf (0-5); URINE BILIRUBIN NEGATIVE (NEGATIVE); URINE BLOOD NEGATIVE (NEGATIVE); URINE CLARITY Clear (Clear); URINE COLOR Colorless (YELLOW); URINE GLUCOSE (UA) NORMAL (Normal); URINE LEUKOCYTE ESTERASE NEG Leu/uL (Negative); URINE PROTEIN NEGATIVE (NEGATIVE); URINE UROBILINOGEN NORMAL mg/dL (0.2-1.0)
[2017-12-12 18:36] LABS: BARBITURATES, UR NEGATIVE (NEGATIVE); BENZODIAZEPINES, UR NEGATIVE (NEGATIVE); OPIATES, UR NEGATIVE (NEGATIVE); PHENCYCLIDINE, UR NEGATIVE (NEGATIVE)
--- NOTE | 2017-12-12 20:45 | PCM.BM ---
<David Lee - Last Filed: 12/12/17 20:44> Treatment Plan Problems - Problems identified on initial assessmt potential for alcohol withdrawal Date Initiated: 12/12/17 Time Initiated: 20:44 Status: Active Treatment assets and liabiliti Patient Assests: ADL independent, physically healthy Patient Liabilities: substance abuse - Milieu Protocol Maintain good personal hygiene: daily Encourage regular showers, daily Remind patient to perform daily oral care, daily Assist patient to perform ADL's Conduct patient checks and document Observation sheet: Q15 minutes Maintain personal safety: every shift Educate patient to report safety concerns to staff, every shift Monitor environment for contraband/sharps Medication safety: Monitor for expected outcome, potential side effects: every shift, Assess barriers to learning: every shift, Assess readiness for medication education: every shift <Kellen Bernardo - Last Filed: 12/14/17 08:55> - Diagnosis (1) Alcohol use disorder, severe, dependence Status: Acute Interventions: 12/14/17 08:55 * Assess 7x/week regarding severity of withdrawal * Educate regarding risks, benefits, side effects and alternatives of medications * Use Motivational Interviewing for abstinence * Use CBT for relapse prevention * Medication management for withdrawal symptoms * Encourage medication assisted treatment *
[2017-12-12] MEDS ORDERED: Aluminum Hydroxide/Magnesium Hydroxide Susp (30 mL) PO PRN (21:51)
[2017-12-13] MEDS: Pantoprazole 40 mg EC Tab PO SCH (10:38)
--- NOTE | 2017-12-13 16:17 | PCM.PSYCH ---
Initial Psychiatric Evaluation - Initial Psychiatric Evaluation Type of Admission: Voluntary Legal Status: Capacity Chief Complaint (in patient's own words): "I need detox from alcohol." History of Present Illness and Precipitating Events: Pt is seen, chart reviewed, case discussed with staff. 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 Pt began drinking alcohol at age 17 and began drinking heavily at age 26; pt now drinks 10 shots of vodka and 2 12 oz cans of beer/day. Pt last drank yesterday around 2 pm. Pt has been to detox 3x before, 1x at [facility] and 2x at ; the last time pt was admitted for detox at was in September 2017; pt has been to rehab 1x at [facility]. Pts longest sobriety was 3 years after finishing rehab. Pt denies cigarettes and drug use. Pt displays withdrawal sxs; pt denies a hx of seizures. Past medical hx includes high blood pressure, diabetes, and anxiety. Current medications include 10 mg of Norvasc, 100 mg of Losartan, and 100 mg BID of Toprol daily and 1 mg of Xanax as needed. Family psychiatric hx denied. Pt is interested in attending an inpatient unit. Current Medications: Active Medications Generic Name Dose Route Start Last Admin Trade Name Freq PRN Reason Stop Dose Admin Acetaminophen 650 mg 12/12/17 21:53 Tylenol 325mg Tab PO Q6 PRN Pain, moderate (4-7) Al Hydrox/Mg Hydrox/Simethicone 30 ml 12/12/17 21:51 Maalox 30 Ml PO TID PRN Indigestion / Heartburn Amlodipine Besylate 10 mg 12/13/17 10:00 12/13/17 10:38 Norvasc PO 10 mg DAILY VEENA Administration Aspirin 81 mg 12/13/17 10:00 12/13/17 10:37 Aspirin Chewable PO 81 mg DAILY VEENA Administration Chlordiazepoxide 25 mg 12/13/17 10:00 12/13/17 10:37 Librium PO 12/18/17 09:59 25 mg Q6H VEENA Administration Taper Chlordiazepoxide 25 mg 12/13/17 09:57 Librium PO Q4H PRN Alcohol Withdrawal Clonidine HCl 0.1 mg 12/12/17 21:51 12/12/17 22:04 Catapres PO 0.1 mg Q8 PRN Administration COWS Score More or Equal to 5 Hydroxyzine HCl 25 mg 12/12/17 21:53 12/12/17 22:04 Atarax PO 25 mg Q4H PRN Administration Anxiety Loperamide HCl 2 mg 12/12/17 21:51 Imodium PO Q8 PRN Diarrhea Metformin HCl 500 mg 12/13/17 10:00 12/13/17 10:38 Glucophage PO 500 mg BID VEENA Administration Metoprolol Tartrate 100 mg 12/13/17 18:00 Lopressor PO BID VEENA Ondansetron HCl 4 mg 12/12/17 21:42 12/12/17 22:04 Zofran Tab PO 4 mg Q8 PRN Administration Nausea/Vomiting Pantoprazole Sodium 40 mg 12/13/17 10:00 12/13/17 10:38 Protonix Ec Tab PO 40 mg DAILY VEENA Administration Trazodone HCl 100 mg 12/12/17 22:00 12/12/17 22:04 Desyrel PO 100 mg HS VEENA Administration Past Psychiatric History - Past Psychiatric History Previous Treatment History: Inpatient Prior Psychiatric Treatment: [facility] Pertinent Medical Hx (Current Medical&Sleep Prob, Allergies): Allergies Allergy/AdvReac Type Severity Reaction Status Date / Time No Known Allergies Allergy Verified 12/12/17 17:20 Metoprolol Tartrate [Lopressor] 1 tab PO BID 04/16/17 amLODIPine [Norvasc] 10 mg PO DAILY 04/16/17 Losartan [Cozaar] 100 mg PO DAILY tab 04/20/17 Metoprolol Tartrate [Lopressor] 25 mg PO BID tab 04/20/17 amLODIPine [Norvasc] 5 mg PO DAILY tab 04/20/17 Losartan [Cozaar] 100 mg PO DAILY #30 tab 10/02/17 Metoprolol Tartrate [Lopressor] 100 mg PO BID #60 tab 10/02/17 Pantoprazole [Protonix EC Tab] 40 mg PO DAILY #30 ect 10/02/17 Topiramate [Topamax] 50 mg PO BID #60 tab 10/02/17 amLODIPine [Norvasc] 10 mg PO DAILY #30 tab 10/02/17 traZODone [Desyrel] 100 mg PO HS PRN #30 tab 10/02/17 Review of Systems - Psychiatric Psychiatric: Abnormal Sleep Pattern, Anhedonia, Anxiety, Behavioral Changes, Change in Appetite, Depression, Difficulty Concentrating. absent: Auditory Hallucinations, Hallucinations, Homicidal Ideation, Hopelessness, Irritability, Memory Loss, Mood Swings, Panic Attacks, Paranoia, Suicidal Ideation, Visual Hallucinations, Tactile Hallucinations Mental Status Examination - Personal Presentation Personal Presentation: Looks stated age - Affect Affect: Constricted - Motor Activity Motor Activity: Psychomotor Retardation - Reliability in Providing Information Reliability in Providing Information: Fair - Speech Speech: Organized - Mood Mood: Depressed, Anxious - Formal Thought Process Formal Thought Process: No Impairment - Obsessions/Compulsions Obsessions: No Compulsions: No - Cognitive Functions Orientation: Person, Place, Situation, Time Sensorium: Drowsy Attention/Concentration: Attentive Abstract Thinking: [place] Estimate of Intelligence: Average Judgement: Intact, as evidence by: Good judgement Memory: Recent intact, as evidence by: Ability to recall events of the day, Remote intact, as evidenced by: Abilit to recall sig. life events - Risk Risk: Withdrawal, Diminished functioning - Strength & Assets Inventory Strength & Assets Inventory: Cooperative DSM 5 DX - DSM 5 DSM 5 Diagnosis: Alcohol Withdrawal Alcohol Use Disorder, severe Substance-induced depression - Recommended/Plan of Treatment Treatment Recommendations and Plan of Treatment: Taper with Librium As needed medications Atarax 25 mg for anxiety All risks, benefits and alternatives of the meds discussed, and the pt agreed and understood. Attend groups and activities Supportive therapy and psychoeducation [place] for abstinence CBT for relapse prevention Encourage MAT Refer to rehab or IOP, and self-help groups 35 min Projected ELOS: 4 days
[2017-12-14] MEDS: Pantoprazole 40 mg EC Tab PO SCH (09:19)
--- NOTE | 2017-12-14 20:30 | PCM.PYCHPN ---
Psychiatric Progress Note - Psychiatric Progress Note Patient seen today, length of contact: 15 MIN Patient Chief Complaint: I WANT TO GO TO [facility] FOR REHAB Problems Identified/Issues Discussed: PT SEEN AND EXAMINED DISCUSSED WITH STAFF DISCUSSED POST ACUTE WITHDRAWAL SYNDROME AND WEIRD DREAMS Medical Problems: NONE NOTED Diagnostic Results: REVIEWED DSM 5 Symptoms Update: ANXIETY Medication Change: Yes (LIBRIUM TAPER) Medical Record Reviewed: Yes Mental Status Examination - Cognitive Function Orientation: Person, Place, Situation, Time Memory: Intact Attention: WNL Concentration: WNL Association: WNL Fund of Knowledge: WNL - Mood Mood: Depressed, Anxious - Affect Affect: Constricted - Speech Speech: Appropriate - Formal Thought Process Formal Thought Process: No Impairment - Suicidal Ideation Suicidal Ideation: No - Homicidal Ideation Homicidal Ideation: No Goal/Treatment Plan - Goal/Treatment Plan Need for Continued Stay: Discharge may exacerbated symptoms Progress Toward Problem(s) and Goals/Treatment Plan: ALCOHOL WITHDRAWAL LIBRIUM TAPER ALCOHOL USE DISORDER MD CBT SUPPORTIVE PSYCHOTHERAPY GROUP [facility]IEU RECREATIONAL THERAPY Estimated Date of D/C: 12/18/17 - Smoking Cessation Smoking Cessation Initiated: No
[2017-12-15] MEDS: Pantoprazole 40 mg EC Tab PO SCH (09:28)
--- NOTE | 2017-12-15 10:22 | RAD ---
Chest x-ray two views History: Rehabilitation. Comparison: None available. Findings: No focal infiltrate or effusion. Heart size within normal limits. Impression: No focal infiltrate or effusion.
--- NOTE | 2017-12-15 20:09 | PCM.PYCHPN ---
Psychiatric Progress Note - Psychiatric Progress Note Patient seen today, length of contact: 15 MIN Patient Chief Complaint: I WANT AND NEED TO GET CLEAN FOR MYSELF AND NO ONE ELSE Problems Identified/Issues Discussed: PT SEEN AND EXAMINED DISCUSSED WITH STAFF DISCUSSED WITH PT PLANS AFTER DISCHARGE IF HE CANNOT GO DIRECT WILL TO [facility] PLANS TO STAY WITH MOTHER AND STEP FATHER AND THEY WILL ACCOMPANY HIM TO MEETINGS Medical Problems: NONE NOTED Diagnostic Results: REVIEWED Medical Record Reviewed: Yes Mental Status Examination - Cognitive Function Orientation: Person, Situation, Time Memory: Intact Attention: WNL Concentration: WNL Association: WNL Fund of Knowledge: WNL - Mood Mood: Anxious - Affect Affect: Constricted - Speech Speech: Appropriate - Formal Thought Process Formal Thought Process: No Impairment - Suicidal Ideation Suicidal Ideation: No - Homicidal Ideation Homicidal Ideation: No Goal/Treatment Plan - Goal/Treatment Plan Need for Continued Stay: Discharge may exacerbated symptoms Progress Toward Problem(s) and Goals/Treatment Plan: ALCOHOL WITHDRAWAL LIBRIUM TAPER AND PRNS NECESSARY FOR SYMPTOMS ALCOHOL USE DISORDER CT CBT SUPPORTIVE PSYCHOTHERAPY GROUP [facility] RECREATIONAL THERAPY Estimated Date of D/C: 12/18/17 - Smoking Cessation Smoking Cessation Initiated: No
[2017-12-16] MEDS: Pantoprazole 40 mg EC Tab PO SCH (09:33)
[2017-12-16 11:48] VITALS: RESP 18
--- NOTE | 2017-12-16 16:00 | PCM.PYCHPN ---
Psychiatric Progress Note - Psychiatric Progress Note Patient seen today, length of contact: 15 minutes Patient Chief Complaint: "I am feeling better." Problems Identified/Issues Discussed: Pt is seen, chart reviewed, case discussed with staff. Pt is compliant with medications and reports no side-effects. Symptoms are improving but needs more time to stabilize; pt slept well through the night; pt denies n/v or tremors but does complain of some diarrhea; pt has some anxiety about going home and requests to be kept on Atarax post discharge. Pt attends groups and activities. Support given, psycho-education provided. After care discussed. Medication Change: Yes (LIBRIUM TAPER) Medical Record Reviewed: Yes Mental Status Examination - Cognitive Function Orientation: Person, Situation, Time Memory: Intact Attention: WNL Concentration: WNL Association: WNL Fund of Knowledge: WNL - Mood Mood: Anxious - Affect Affect: Constricted - Speech Speech: Appropriate - Formal Thought Process Formal Thought Process: No Impairment - Suicidal Ideation Suicidal Ideation: No - Homicidal Ideation Homicidal Ideation: No Goal/Treatment Plan - Goal/Treatment Plan Need for Continued Stay: Discharge may exacerbated symptoms Progress Toward Problem(s) and Goals/Treatment Plan: Continue medications Support and psychoeducation daily Attend groups and activities daily After care planning by YENNI Estimated Date of D/C: 12/18/17
[2017-12-16 19:25] VITALS: TEMP 98.4
[2017-12-17 06:42] VITALS: O2SAT 96
--- NOTE | 2017-12-17 08:34 | PCM.PYCHDC ---
Mental Status Examination - Mental Status Examination Orientation: Person, Place, Situation, Time Memory: Intact Mood: Anxious Affect: Constricted Speech: Appropriate Attention: WNL Concentration: WNL Association: WNL Fund of Knowledge: WNL Formal Thought Process: No Impairment Suicidal Ideation: No Current Homicidal Ideation?: No Discharge Summary - Discharge Note Reason for Hospitalization: Alcohol detox Consultations:: List each consultation separately and include: 1. Reason for request. 2. Findings. 3. Follow-up Summary of Hospital Course include:: 1. Description of specific treatment plan utilized for patients during their course of treatmen. 2. Summarize the time- course for resolution of acute symptoms and/or regressed behaviors. 3. Describe issues identified and worked on during hospitalization. 4. Describe medication utilized. 5. Describe medical problems identified and treated. 6. Reassessment of suicide risk Summary of Hospital Course: Pt is seen, chart reviewed, case discussed with staff. 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 Pt began drinking alcohol at age 17 and began drinking heavily at age 26; pt now drinks 10 shots of vodka and 2 12 oz cans of beer/day. Pt last drank yesterday around 2 pm. Pt has been to detox 3x before, 1x at [place] and 2x at ; the last time pt was admitted for detox at was in September 2017; pt has been to rehab 1x at [facility] in [place]. Pts longest sobriety was 3 years after finishing rehab. Pt denies cigarettes and drug use. Pt displays withdrawal sxs; pt denies a hx of seizures. Past medical hx includes high blood pressure, diabetes, and anxiety. Current medications include 10 mg of Norvasc, 100 mg of Losartan, and 100 mg BID of Toprol daily and 1 mg of Xanax as needed. Family psychiatric hx denied. Pt is interested in attending an inpatient unit. Hospital course: The pt was admitted and started on treatment with psychotherapy, support, psychoeducation and medications. MT and CBT used. The pt attended groups and activities, as well as milieu therapy. All the risks and benefits of medications are discussed and the patient understood and agreed. The pt improved with the treatments provided. After care discussed with the patient. He is waitlisted in [facility] - Final Diagnosis (DSM 5) Condition upon Discharge: STABLE DSM 5: Alcohol Withdrawal Alcohol Use Disorder, severe Substance-induced depression Disposition: HOME/ ROUTINE Follow-up Treatment Plan: Continue below medications after discharge. Follow after care plan as discussed. Use relapse prevention skills Return to ER or call 911 if suicidal, homicidal or symptoms relapse. Stay away from stress, alcohol and drugs. See primary doctor regularly and get labs. Prescriptions/Medication Reconciliation: amLODIPine [Norvasc] 10 mg PO DAILY #30 tab Aspirin [Aspirin Chewable] 81 mg PO DAILY #30 chew metFORMIN [glucOPHAGE] 500 mg PO BID #60 tab Metoprolol Tartrate [Lopressor] 100 mg PO BID #60 tab Pantoprazole [Protonix EC Tab] 40 mg PO DAILY #30 ect traZODone [Desyrel] 100 mg PO HS #30 tab - Smoking Cessation Smoking Cessation Medication prescribed: No - Antipsychotic Medications Pt discharged on 2 or more routine antipsychotic medications: No
[2017-12-17] MEDS: Pantoprazole 40 mg EC Tab PO SCH (09:20)
[2017-12-17 09:35] VITALS: BP 131/81; PULSE 80
== END 2017-12-17 09:25 | disposition home or self-care (01) | DRG 751 ==
LOC: C.ER 16:52 → C.7D 20:09
PROVIDERS: ADMIT Psychiatry & Neurology Psychiatry; ATTEND Psychiatry & Neurology Psychiatry
PROC: HZ2ZZZZ Detoxification Services for Substance Abuse Treatment (ICD-10-PCS; principal; 2017-12-12)
PROC: HZ52ZZZ Individual Psychotherapy for Substance Abuse Treatment, Cognitive-Behavioral (ICD-10-PCS; 2017-12-12)
PROC: HZ59ZZZ Individual Psychotherapy for Substance Abuse Treatment, Supportive (ICD-10-PCS; 2017-12-12)
PROC: HZ56ZZZ Individual Psychotherapy for Substance Abuse Treatment, Psychoeducation (ICD-10-PCS; 2017-12-12)
PROC: HZ42ZZZ Group Counseling for Substance Abuse Treatment, Cognitive-Behavioral (ICD-10-PCS; 2017-12-12)
PROC: HZ46ZZZ Group Counseling for Substance Abuse Treatment, Psychoeducation (ICD-10-PCS; 2017-12-12)
PROC: GZHZZZZ Group Psychotherapy (ICD-10-PCS; 2017-12-12)
PROC: GZ58ZZZ Individual Psychotherapy, Cognitive-Behavioral (ICD-10-PCS; 2017-12-12)
PROC: GZ56ZZZ Individual Psychotherapy, Supportive (ICD-10-PCS; 2017-12-12)
DX: F10.230 Alcohol dependence with withdrawal, uncomplicated (principal); Y90.7 Blood alcohol level of 200-239 mg/100 ml; E11.9 Type 2 diabetes mellitus without complications; I10 Essential (primary) hypertension; F41.9 Anxiety disorder, unspecified; F32.89 Other specified depressive episodes